=== PATIENT | female | born 1945 | race Two or more races ===

== ENCOUNTER 2024-09-19 14:24 | Inpatient (IN) | payer MEDICAID ==
[~2024-09-19] VITALS: Ht 149.9 cm; Wt 52.7 kg
[2024-09-19 15:48] LABS: Basophils # (auto) 0 10 ^3/uL (0-0.2); Basophils % (auto) 0.4 % (0.0-2.0); Eosinophils # (auto) 0.1 10 ^3/uL (0-0.8); Eosinophils % (auto) 0.9 % (0.0-7.0); Hematocrit 26.7 % (36.0-46.0); Hemoglobin 8.5 g/dL (12.2-16.2); Lymphocytes # (auto) 3.5 10 ^3/uL (0.4-5.4); Lymphocytes % (auto) 44.5 % (10.0-50.0); Mean Corpuscular Hemoglobin 25.1 pg (28.0-32.0); Mean Corpuscular Volume 78.3 fL (80.0-100.0); Monocytes # (auto) 0.5 10 ^3/uL (0-1.3); Monocytes % (auto) 6.7 % (0.0-12.0); Neutrophils # (auto) 3.7 10 ^3/uL (1.6-8.6); Neutrophils % (auto) 47.5 % (37.0-80.0); Platelet Count (auto) 326 10^3/uL (140-450); Red Blood Cells 3.41 10^6/uL (4.0-5.20); Red Cell Distribution Width 18.1 % (11.8-14.3); White Blood Cell 7.8 10^3/uL (4.4-10.8)
[2024-09-19 15:54] LABS: Sodium 140 mmol/L (136-145)
[2024-09-19 15:55] LABS: Anion Gap 9 (5-15); Carbon Dioxide 24 mmol/L (20-31)
[2024-09-19 15:56] LABS: Calcium 9.7 mg/dL (8.7-10.4)
[2024-09-19 16:00] LABS: Glucose 81 mg/dL (74-106)
[2024-09-19 16:01] LABS: BUN/Creatinine Ratio 20.5 (10.0-20.0); Blood Urea Nitrogen 18 mg/dL (9-23); Chloride 107 mmol/L (98-107)
--- NOTE | 2024-09-19 16:07 | ED.PDOC ---
History of Present Illness HPI Comments 78 y/o F presents with c/o abnormal labs, today. Patient reports on being sent from her PCP's office, today, after having a near-syncopal episode and being found with a HgB on 7.9, during an in-person appointment. She comments on attending said appointment, due to reporting symptoms of generalized weakness, lightheadedness, dizziness, shortness of breath, and left-arm numbness, yesterday, to her home-health nurse, while visiting. Patient endorses a history of anemia, CKF, CVA, DM, and inguinal cysts. She denies any chest pain, vision or speech changes, headache, cough, congestion, fever, chills, or other associated symptoms or modifiers at this time. Upon arrival to ED triage, patient was found with a pulse rate of 59 and blood pressure fo 127/50. 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 Family History Family History: Reviewed,noncontributory to illness, Family hx of Cancer, Family hx of stroke Social History Smoker: Non-Smoker Alcohol: Denies ETOH Use Drugs: Denies Drug Use Lives In: Home Constitutional: denies: chills, diaphoresis, fatigue, fever, malaise, sweats, weakness, others EENTM: denies: blurred vision, double vision, ear bleeding, ear discharge, ear drainage, ear pain, ear ringing, eye pain, eye redness, hearing loss, mouth pain, mouth swelling, nasal discharge, nose bleeding, nose congestion, nose pain, photophobia, tearing, throat pain, throat swelling, voice changes, others Respiratory: denies: cough, hemoptysis, orthopnea, SOB at rest, shortness of breath, SOB with excertion, stridor, wheezing, others Cardiovascular: denies: chest pain, dizzy spells, diaphoresis, Dyspnea on exertion, edema, irregular heart beat, left arm pain, lightheadedness, palpitations, PND, syncope, others Gastrointestinal: denies: abdomen distended, abdominal pain, blood streaked bowels, constipated, diarrhea, dysphagia, difficulty swallowing, hematemesis, melena, nausea, poor appetite, poor fluid intake, rectal bleeding, rectal pain, vomiting, others Genitourinary: denies: abnormal vagina bleeding, burning, dyspareunia, dysuria, flank pain, frequency, hematuria, incontinence, pain, , vagina discharge, urgency, others Neurological: denies: dizziness, fainting, headache, left sided numbness, left sided weakness, numbness, paresthesia, pre-existing deficit, right sided numbness, right sided weakness, seizure, speech problems, tingling, tremors, weakness, others Musculoskeletal: denies: back pain, gout, joint pain, joint swelling, muscle pain, muscle stiffness, neck pain, others Integumetry: denies: bruises, change in color, change in hair/nails, dryness, laceration, lesions, lumps, rash, wounds, others Allergic/Immunocompromised: denies: Difficulty Healing, Frequent Infections, Hives, Itching, others Hematologic/Lymphatic: denies: anemia, blood clots, easy bleeding, easy bruising, swollen glands, others Endocrine: denies: excessive hunger, excessive sweating, excessive thirst, excessive urination, flushing, intolerance to cold, intolerance to heat, unexplained weight gain, unexplained weight loss, others Psychiatric: denies: anxiety, bipolar disorder, depression, hopeless, panic disorder, schizophrenia, sleepless, suicidal, others All Other Systems: Reviewed and Negative (negative unless otherwise stated above or in HPI) Physical Exam General Appearance: Moderate Distress HEENT: Normal ENT Inspection, Pharynx Normal, TMs Normal Neck: Full Range of Motion, Non-Tender, Normal, Normal Inspection Respiratory: Chest Non-Tender, Lungs Clear, No Accessory Muscle Use, No Respiratory Distress, Normal Breath Sounds Cardiovascular: No Edema, No JVD, No Murmur, No Gallop, Normal Peripheral Pulses, Regular Rate/Rhythm Breast Exam: Deferred Gastrointestinal: No Organomegaly, Non Tender, No Pulsatile Mass, Normal Bowel Sounds, Soft Genitalia: Deferred Pelvic: Deferred Rectal: Deferred Extremities: No calf tenderness, Normal capillary refill, Normal inspection, Normal range of motion, Non-tender, No pedal edema Musculoskeletal : Apperance: Normal Neurologic: Alert, 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 Was a procedure done?: No EKG EKG : Pulse Rate (adult): 59 [place]: Normal Cardiac Rhythm: NSR Block: None Hypertrophy: None ST: Normal Differential Dx Considerations may include: viral syndrome, URI, electrolyte imbalance, anemia, PNA X-Ray, Labs, Meds, VS Vital Signs Date Time Temp Pulse Resp B/P (MAP) Pulse Ox O2 Delivery O2 Flow Rate FiO2 09/19/24 17:30 60 16 100 Room Air 09/19/24 17:30 98.1 60 16 131/49 (76) 100 98.1 09/19/24 16:07 59 09/19/24 15:05 97.9 63 18 127/50 (75) 99 09/19/24 14:54 59 Lab Test 09/19/24 15:28 09/19/24 14:47 Range/Units White Blood Count 7.8 4.4-10.8 10^3/uL Red Blood Count 3.41 L 4.0-5.20 10^6/uL Hemoglobin 8.5 L 12.2-16.2 g/dL Hematocrit 26.7 L 36.0-46.0 % Mean Corpuscular Volume 78.3 L 80.0-100.0 fL Mean Corpuscular Hemoglobin 25.1 L 28.0-32.0 pg Mean Corpuscular Hemoglobin Concent 32.0 32.0-36.0 g/dL Red Cell Distribution Width 18.1 H 11.8-14.3 % Platelet Count 326 140-450 10^3/uL Mean Platelet Volume 8.0 6.9-10.8 fL Neutrophils (%) (Auto) 47.5 37.0-80.0 % Lymphocytes (%) (Auto) 44.5 10.0-50.0 % Monocytes (%) (Auto) 6.7 0.0-12.0 % Eosinophils (%) (Auto) 0.9 0.0-7.0 % Basophils (%) (Auto) 0.4 0.0-2.0 % Neutrophils # (Auto) 3.7 1.6-8.6 10 ^3/uL Lymphocytes # (Auto) 3.5 0.4-5.4 10 ^3/uL Monocytes # (Auto) 0.5 0-1.3 10 ^3/uL Eosinophils # (Auto) 0.1 0-0.8 10 ^3/uL Basophils # (Auto) 0 0-0.2 10 ^3/uL Nucleated Red Blood Cells 0.0 % Prothrombin Time 10.3 9.3-11.8 sec Prothrombin Time INR 0.97 0.9-1.15 Activated Partial Thromboplast Time 25.0 24.5-34.5 SEC Sodium Level 140 136-145 mmol/L Potassium Level 4.0 3.5-5.1 mmol/L Chloride Level 107 98-107 mmol/L Carbon Dioxide Level 24 20-31 mmol/L Anion Gap 9 5-15 Blood Urea Nitrogen 18 9-23 mg/dL Creatinine 0.88 0.550-1.02 mg/dL Glomerular Filtration Rate Calc 68 >90 mL/min BUN/Creatinine Ratio 20.5 H 10.0-20.0 Serum Glucose 81 74-106 mg/dL Calcium Level 9.7 8.7-10.4 mg/dL POC Glucose 79 70-106 mg/dl The CBC shows anemia with a hemoglobin of 8.5 and hematocrit 26.7 The platelets are within normal limits The chemistry panel is within normal limits At this time, the patient will be admitted to the hospitalist The patient was still having symptoms of dizziness Images Reviewed?: Images reviewed and evaluated by me Time of 1ST Reevaluation: 15:30 Reevaluation 1ST: Unchanged Patient Education/Counseling: Diagnosis, Treatment, Prognosis Family Education/Counseling: No Family Present Departure 1 Departure Time of Disposition: 20:25 Impression: Primary Impression: Autonomic dysfunction Disposition: 09 ADMITTED INPATIENT Admit to: Tele Condition: Fair Critical Care Note Critical Care Time?: Yes (45 min-critical care time only) Stability Stability form required: Yes Unstable for transfer: Telemetry monitoring (Telemetry monitoring required), ED Physician Assesment (Clinical assesment) Heart Score Heart Score: Heart Score Response (Comments) Value History Moderate Suspicious 1 EKG Normal 0 Age >65 2 Risk Factors >3 or Hx ASHD 2 Troponin N/A 0 Total 5 I personally scribed for DANIELLE HEADLEY MD ([email or web address]) on 09/19/24 at 16:07. Electronically submitted by Phillip Mack ([email or web address]). DANIELLE HEADLEY MD Sep 19, 2024 16:07
[2024-09-19 16:13] LABS: INR 0.97 (0.9-1.15); Prothrombin Time 10.3 sec (9.3-11.8)
[2024-09-19] MEDS ORDERED: DOCUSATE SOD 100 MG CAP PO PRN (22:30)
[2024-09-19] MEDS ORDERED: DEXTROSE (50%) 50ML SYRG IV PRN (22:30)
--- NOTE | 2024-09-19 23:11 | DVHHP2 ---
History of Present Illness Reason for Visit: Anemia, unspecified History of Present Illness The patient is a 78-year-old female with multiple past medical history including anemia, DM, and hypertension who presented to [facility] ED with complaint dizziness. Patient reports she was seen by her PCP's office today a fter having a near syncopal episode with hemoglobin 7.9 during an inpatient appointment. Patient was sent to our facility ED due to progressive symptoms of generalized weakness, lightheadedness, dizziness, shortness of breaths, and left arm numbness. Patient was seen and evaluated in the ED, laboratory data shows WBC 7.8, hemoglobin 8.5, hematocrit 26.7, platelets 326, sodium 140, potassium 4.0, BUN 18, creatinine 0.88, GFR 68, glucose 81, calcium 9.7. Blood pressure 136/55, pulse 70, temperature 97.7 F, O2 saturation 98% on room air. Please see medication orders section in the computer. On my assessment, patient denies chest pain, no headache, no dizziness at this moment, no diaphoresis, no shortness of breaths, no nausea, no vomiting, no fever, no chills. Patient was admitted for further evaluation and medical management. Past Medical History Anemia, CKF, CVA, DM, HTN, Inguinal cysts Past Surgical History Appendectomy, Hysterectomy, Cataract surgery, back surgery Family History Reviewed, noncontributory to the management of this case. Past Social History The patient lives at home, denies smoking, alcohol or illicit drugs abuse. Review of Systems Constitutional: Yes: Weakness; No: Fever, Chills, Sweats, Malaise, Other Eyes: No: Pain, Vision change, Conjunctivae inflammation, Eyelid inflammation, Other, Redness ENT: No: Ear pain, Ear discharge, Nose pain, Nose discharge, Nose congestion, Mouth pain, Mouth swelling, Throat pain, Throat swelling, Other Respiratory: No: Cough, Dry, Shortness of breath, SOB with excertion, Wheezing, Hemoptysis, Pleuritic Pain, Sputum, Wheezing, Other Cardiovascular: No: Chest Pain, Palpitations, Orthopnea, Paroxysmal Noc. Dyspnea, Edema, Lt Headedness, Other Gastrointestinal: No: Nausea, Vomiting, Abdominal Pain, Diarrhea, Constipation, Melena, Hematochezia, Other Genitourinary: No Dysuria, No Frequency, No Incontinence, No Hematuria, No Ret ention, No Other Musculoskeletal: No: other, neck pain, shoulder pain, arm pain, back pain, hand pain, leg pain, foot pain Skin: No: Rash, Lesions, Jaundice, Bruising, Other Neurological: Other (Dizziness); No: Weakness, Numbness, Incoordination, Change in speech, Confusion, Seizures Allergies: Coded Allergies: Codeine (Verified Allergy, Mild, RASH, 09/19/24) Medications Current Medications Medications Dose Ordered Sig/Anny Route Start Time Stop Time Status Last Admin Dose Admin Diagnostic Test (Pha) 1 strip ACHS 09/20/24 07:00 UNV Insulin Human Regular ACHS SC 09/20/24 07:00 UNV Dextrose 50 ml UD PRN IV 09/19/24 22:30 UNV Sodium Chloride 10 ml Q8HR IV 09/20/24 06:00 UNV Acetaminophen/ Hydrocodone Bitart 1 tab Q4HP PRN PO 09/19/24 22:30 UNV Ondansetron HCl 4 mg Q4HP PRN IV 09/19/24 22:30 UNV Docusate Sodium 100 mg BIDPRN PRN PO 09/19/24 22:30 UNV Acetaminophen 650 mg Q6HP PRN PO 09/19/24 22:30 UNV Exam Vital Signs Vital Signs Date Time Temp Pulse Resp B/P (MAP) Pulse Ox O2 Delivery O2 Flow Rate FiO2 09/19/24 21:48 97.7 70 14 155/54 (87) 95 97.7 09/19/24 21:38 Room Air* 0 21 General Appearance: Alert, Oriented X3, Cooperative, No acute distress HEENT: Atraumatic, PERRLA, EOMI, Mucous membr. moist/pink Respiratory: Clear to auscultation, Normal air movement Cardiovascular: Regular rate, Normal S1, Normal S2, No murmurs Abdominal: Normal bowel sounds, Soft, No tenderness, No hepatospenomegaly, No masses Extremities: No clubbing, No cyanosis, No edema, Normal pulses, No tenderness/swelling Skin: No rashes, No breakdown, No significant lesion Neuro: Normal speech, Normal tone, Sensation intact, Cranial nerves 3-12 NL, Reflexes 2+, Other (Generalized weakness) Psych/Mental Status: Mental status NL, Mood NL Labs/Xrays Labs Test 09/19/24 21:44 09/19/24 15:28 Range/Units POC Glucose 81 70-106 mg/dl White Blood Count 7.8 4.4-10.8 10^3/uL Red Blood Count 3.41 L 4.0-5.20 10^6/uL Hemoglobin 8.5 L 12.2-16.2 g/dL Hematocrit 26.7 L 36.0-46.0 % Mean Corpuscular Volume 78.3 L 80.0-100.0 fL Mean Corpuscular Hemoglobin 25.1 L 28.0-32.0 pg Mean Corpuscular Hemoglobin Concent 32.0 32.0-36.0 g/dL Red Cell Distribution Width 18.1 H 11.8-14.3 % Platelet Count 326 140-450 10^3/uL Mean Platelet Volume 8.0 6.9-10.8 fL Neutrophils (%) (Auto) 47.5 37.0-80.0 % Lymphocytes (%) (Auto) 44.5 10.0-50.0 % Monocytes (%) (Auto) 6.7 0.0-12.0 % Eosinophils (%) (Auto) 0.9 0.0-7.0 % Basophils (%) (Auto) 0.4 0.0-2.0 % Neutrophils # (Auto) 3.7 1.6-8.6 10 ^3/uL Lymphocytes # (Auto) 3.5 0.4-5.4 10 ^3/uL Monocytes # (Auto) 0.5 0-1.3 10 ^3/uL Eosinophils # (Auto) 0.1 0-0.8 10 ^3/uL Basophils # (Auto) 0 0-0.2 10 ^3/uL Nucleated Red Blood Cells 0.0 % Prothrombin Time 10.3 9.3-11.8 sec Prothrombin Time INR 0.97 0.9-1.15 Activated Partial Thromboplast Time 25.0 24.5-34.5 SEC Sodium Level 140 136-145 mmol/L Potassium Level 4.0 3.5-5.1 mmol/L Chloride Level 107 98-107 mmol/L Carbon Dioxide Level 24 20-31 mmol/L Anion Gap 9 5-15 Blood Urea Nitrogen 18 9-23 mg/dL Creatinine 0.88 0.550-1.02 mg/dL Glomerular Filtration Rate Calc 68 >90 mL/min BUN/Creatinine Ratio 20.5 H 10.0-20.0 Serum Glucose 81 74-106 mg/dL Calcium Level 9.7 8.7-10.4 mg/dL Assessment/Plan Assessment/Plan Anemia, unspecified Dizziness and giddiness Generalized weakness Plan 1. Admit to telemetry unit 2. Breathing treatment 3. Pain control management 4. Management of fluids and electrolytes 5. Consultation for hospitalist 6. Diagnostic tests chest x-ray 7. DVT prophylaxis -on SCDs 8. Repeat labs CBC, CMP in a.m. 9. Continue with current medical management 10. Treatment plan discussed with patient and RN. Patient verbalized understanding. Plan discussed with: Patient, Other (RN) My Orders Orders - CYNDI BRICEÑO DNP Procedure Category Date Status Time Consistent DIET 09/20/24 Transmitted Carb(Ccho)Diabetes Breakfast Glucose Blood PHA 09/20/24 Logged (Accu-Chek Comfort 07:00 Insulin R (Human) PHA 09/20/24 Logged (Insulin R) 07:00 Dextrose 50% Syringe PHA 09/19/24 Logged 22:30 Allergies [facility] 09/19/24 In Process 22:18 Code Status CODE 09/19/24 Transmitted 22:18 Sodium Chloride Lock PHA 09/20/24 Logged (Saline Lock Ns) 06:00 Oxygen Per Hour RT 09/19/24 Transmitted 22:18 Hydrocodone-Acet PHA 09/19/24 Logged 5/325mg Tab ([place] 22:30 Ondansetron Hcl PHA 09/19/24 Logged (Zofran) 22:30 Docusate Sodium PHA 09/19/24 Logged Capsule (Colace 22:30 Fall Risk Precautions [facility] 09/19/[address] 22:18 Complete Blood Count LAB 09/20/24 Verified 04:00 Comprehensive LAB 09/20/24 Verified Metabolic Panel 04:00 Condition: Serious HEIDI 09/19/24 In Process 22:18 Acetaminophen Tablet PHA 09/19/24 Logged (Tylenol Tablet) 22:30 Sequential HEIDI 09/19/24 In Process Compression Device Admit ADMIT 09/19/24 Verified 23:10 Nitroglycerin PHA 09/19/24 Verified Sublingual (Ntrostat 23:15 Morphine Sulfate PHA 09/19/24 Verified Injection 23:15 Notify Of Changes HEIDI 09/19/24 Verified From Base 23:10 Dry Cleaner Hand For [facility] 09/19/24 Verified 24 Hours 23:10 Emergency Dysrhythmia [facility] 09/19/24 Verified Protocol 23:10 Rhythm Strips Once [facility] 09/19/24 Verified Every Shift 23:10 Oxygen By Nasal RT 09/19/24 Verified Cannula 23:10 Problem List: (1) Anemia, unspecified (2) Dizziness and giddiness (3) Generalized weakness Date of Service: Sep 19, 2024 Billing Provider: CYNDI BRICEÑO DNP Common Visit Codes: [id number] INP/OBS CARE (HIGH) CYNDI BRICEÑO DNP Sep 19, 2024 23:11
[2024-09-19] MEDS ORDERED: MORPHINE SULFATE INJ 2 MG/ml SYRG IV PRN (23:15)
[2024-09-19] MEDS ORDERED: NITROGLYCERIN 0.4 MG SL TAB SL PRN (23:15)
[2024-09-20] VITALS (9 sets, daily range): BP systolic 95–146; BP diastolic 36–68; PULSE 55–67; RESP 17–20; TEMP 97.8–98.1; O2SAT 93–100
[2024-09-20] MEDS: HYDROcodone-ACET 5/325MG TAB PO PRN (01:14)
[2024-09-20] MEDS: ACCU-CHEK COMFORT CURVE STRIP VI SCH (06:20)
[2024-09-20] MEDS: InsuLIN REG 1unit/0.01ml Soln (100units/ml) SC SCH (06:20)
[2024-09-20] MEDS: SODIUM CHLOR 0.9% PF (SALINE LOCK) 10ML VIAL/SYR IV SCH (06:20)
[2024-09-20 06:25] LABS: Eosinophils # (auto) 0 10 ^3/uL (0-0.8); Eosinophils % (auto) 0.7 % (0.0-7.0); Mean Corpuscular Hemoglobin 24.6 pg (28.0-32.0); Red Blood Cells 3.26 10^6/uL (4.0-5.20); White Blood Cell 6.5 10^3/uL (4.4-10.8)
[2024-09-20 06:27] LABS: Basophils # (auto) 0.1 10 ^3/uL (0-0.2); Basophils % (auto) 0.9 % (0.0-2.0); Hematocrit 25.4 % (36.0-46.0); Lymphocytes # (auto) 3.3 10 ^3/uL (0.4-5.4); Lymphocytes % (auto) 50.6 % (10.0-50.0); Mean Corpuscular Hgb Conc. 31.5 g/dL (32.0-36.0); Mean Corpuscular Volume 78.1 fL (80.0-100.0); Monocytes # (auto) 0.5 10 ^3/uL (0-1.3); Monocytes % (auto) 7.9 % (0.0-12.0); Neutrophils # (auto) 2.6 10 ^3/uL (1.6-8.6); Neutrophils % (auto) 39.9 % (37.0-80.0); Nucleated Red Blood Cells % 0.1 %; Platelet Count (auto) 288 10^3/uL (140-450)
[2024-09-20 07:15] LABS: Anion Gap 8 (5-15); BUN/Creatinine Ratio 18.6 (10.0-20.0); Blood Urea Nitrogen 18 mg/dL (9-23); Calcium 9.5 mg/dL (8.7-10.4); Carbon Dioxide 25 mmol/L (20-31); Glucose 85 mg/dL (74-106); Potassium 4.5 mmol/L (3.5-5.1); Sodium 142 mmol/L (136-145)
[2024-09-20 07:17] LABS: Albumin 3.9 g/dL (3.2-4.8); Bilirubin, Total 0.3 mg/dL (0.2-1.0)
[2024-09-20 07:25] LABS: Alanine Aminotransferase < 9 U/L (7-40); Alkaline Phosphatase 34 U/L (46-116); Aspartate Aminotransferase 8 U/L (13-40); Chloride 109 mmol/L (98-107); Total Protein 5.6 g/dL (5.7-8.2)
--- NOTE | 2024-09-20 09:22 | ECG ---
[facility] Test Date: 2024-09-19 Test Time: 14:54:21 Pat Name: CHAYITO LAMAR Department: ER Room: 0296T A Gender: F Break Up Worker: SHYANN : 1945 Requested By: DANIELLE HEADLEY Order Number: [id number] Reading MD: Jd Eisenberg Measurements Intervals [place] Rate: 59 P: 60 MN: 133 QRS: 55 QRSD: 87 T: 64 QT: 422 QTc: 418 Interpretive Statements Sinus rhythm Low voltage, extremity leads Electronically Signed On 09-21-2024 17:47:48 PST by Jd Eisenberg Please click the below link to view image of tracing.
--- NOTE | 2024-09-20 12:49 | DVHPN2 ---
Reviewed: Care Plan, H&P, Labs, Medications, Previous Orders, Radiology Changes from previous H/P or p: No Changes Eyes: No Pain, No Vision change, No Conjunctivae inflammation, No Eyelid inflammation, No Other, No Redness ENT: No Ear pain, No Ear discharge, No Nose pain, No Nose discharge, No Nose congestion, No Mouth pain, No Mouth swelling, No Throat pain, No Throat swelling, No Other Cardiovascular: No Chest Pain, No Palpitations, No Orthopnea, No Paroxysmal Noc. Dyspnea, No Edema, No Lt Headedness, No Other Respiratory: No Cough, No Dry, No Shortness of breath, No SOB with excertion, No Wheezing, No Hemoptysis, No Pleuritic Pain, No Sputum, No Other Gastrointestinal: No Nausea, No Vomiting, No Abdominal Pain, No Diarrhea, No Constipation, No Melena, No Hematochezia, No Other Genitourinary: No Dysuria, No Frequency, No Incontinence, No Hematuria, No Retention, No Other Musculoskeletal: No other, No neck pain, No shoulder pain, No arm pain, No back pain, No hand pain, No leg pain, No foot pain Skin: No Rash, No Lesions, No Jaundice, No Bruising, No Other Objective Vitals Vital Signs Date Time Temp Pulse Resp B/P (MAP) Pulse Ox O2 Delivery O2 Flow Rate FiO2 09/20/24 09:00 98.0 55 20 112/68 (83) 99 98.0 09/20/24 08:25 Room Air* 0 21 Intake/Output Intake and Output 09/20/24 07:00 Intake Total 200 ml Balance 200 ml Intake Oral 200 ml # Voids 1 Medications Current Medications Medications Dose Ordered Sig/Anny Route Start Time Stop Time Status Last Admin Dose Admin Diagnostic Test (Pha) 1 strip ACHS 09/20/24 07:00 09/20/24 11:36 1 STRIP Insulin Human Regular ACHS SC 09/20/24 07:00 Dextrose 50 ml UD PRN IV 09/19/24 22:30 Sodium Chloride 10 ml Q8HR IV 09/20/24 06:00 09/20/24 06:20 10 ML Acetaminophen/ Hydrocodone Bitart 1 tab Q4HP PRN PO 09/19/24 22:30 09/20/24 09:08 1 TAB Ondansetron HCl 4 mg Q4HP PRN IV 09/19/24 22:30 Docusate Sodium 100 mg BIDPRN PRN PO 09/19/24 22:30 Acetaminophen 650 mg Q6HP PRN PO 09/19/24 22:30 Nitroglycerin 0.4 mg Q5MINP PRN SL 09/19/24 23:15 Morphine Sulfate 2 mg Q30M PRN IV 09/19/24 23:15 Laboratory Results Laboratory Tests 09/20/24 05:45 Chemistry Test 09/19/24 15:28 09/20/24 05:45 Calcium Level 9.7 mg/dL (8.7-10.4) 9.5 mg/dL (8.7-10.4) Albumin 3.9 g/dL (3.2-4.8) Total Protein 5.6 g/dL (5.7-8.2) L Coagulation Test 09/19/24 15: Prothrombin Time 10.3 sec (9.3-11.8) Prothrombin Time INR 0.97 (0.9-1.15) Activated Partial Thromboplast Time 25.0 SEC (24.5-34.5) LFT Test 09/20/24 05:45 Alanine Aminotransferase (ALT) < 9 U/L (7-40) Alkaline Phosphatase 34 U/L (46-116) L Aspartate Amino Transferase (AST) 8 U/L (13-40) L Total Bilirubin 0.3 mg/dL (0.2-1.0) Labs and/or images reviewed: Labs reviewed by me, Image(s) reviewed by me Assessment/Plan Assessment/Plan Dizziness Near syncope: CT head carotid ultrasound echocardiogram Neurology consult for Dr. Alex Moderate anemia hemoglobin 8.5 Generalized weakness: Melonie test COVID test D-dimer History of CVA Diabetes: Insulin sliding scale Hypertension Left arm weakness ruled out stroke Anemia, unspecified Dizziness and giddiness Generalized weakness Time spent 45 minutes Mc at bedside Plan discussed with: Patient My Orders Orders - AARON ZUNIGA MD Procedure Category Date Status Time Rapid Influenza A&B LAB 09/20/24 Transmitted 12:42 Covid19 Antigen Janet LAB 09/20/24 Transmitted D-Dimer LAB 09/20/24 Transmitted 12:[address] 09/20/24 Verified 12:43 Carotid Duplx W Color US 09/20/24 Verified DOP 12:43 Echo 2d Mode Cardiac US 09/20/24 Verified DOP 12:43 Date of Service: Sep 20, 2024 Billing Provider: AARON ZUNIGA MD Common Visit Codes: [id number] INP/OBS CARE(HIGH) AARON ZUNIGA MD Sep 20, 2024 12:49
--- NOTE | 2024-09-20 13:39 | DVH ---
CLINICAL INFORMATION: 78 years old, Female; dizziness. TECHNIQUE: Axial imaging was obtained through the brain without contrast. Coronal and sagittal refor matted images were obtained, reviewed, and stored. Images were reviewed in brain and bone windows. A ll CT scans at this medical facility are performed using dose modulation techniques as appropriate to a performed exam including the following: Automated exposure control was utilized; adjustment of the MA and/or KV according to patient size; and use of iterative reconstruction technique. CTDIvol = 52.08 mGy DLP = 835.06 mGy-cm COMPARISON: None FINDINGS: There is no acute intracranial hemorrhage or extraaxial fluid collection. No mass effect o r midline shift. Scattered areas of hypoattenuation are seen in the periventricular and subcortical w david matter, which are nonspecific but most likely sequelae of small vessel ischemic disease.The vent ricles and sulci are within normal limits in size for age. Basal cisterns are patent. The calvari um is unremarkable. Paranasal sinuses and mastoid air cells are clear. IMPRESSION: No CT evidence of acute intracranial abnormality.
--- NOTE | 2024-09-20 14:28 | DVH ---
Carotid Duplex Date: 09/20/2024 02:03 PM Clinical History: Near-syncope Comparison: None Technique: Duplex Doppler evaluation of the extracranial carotid and vertebral arteries including color Doppler and spectral/pulsed waveform analysis was performed. Findings: RIGHT SIDE: The peak systolic velocities are 78.9 cm/s in the distal CCA and 134.8 cm/s in the proximal ICA.The I CA/CCA ratio is less than 2. The external carotid artery is patent with peak systolic velocity of 71.1 cm/s proximally. There is appropriate antegrade flow in the right vertebral artery, 62.4 cm/s LEFT SIDE: The peak systolic velocities are 87.1 cm/s in the distal CCA and 145.7 cm/s in the proximal ICA.. Th e ICA/CCA ratio is less than 2. The external carotid artery is patent with peak systolic velocity of 54.4 cm/s proximally. There is appropriate antegrade flow in the left vertebral artery. IMPRESSION: 1. No hemodynamically significant stenosis noted in the right carotid system. 2. No hemodynamically significant stenosis noted in the left carotid system. 3. Reference: Radiology 2003; 229:340-346 HS:Y
[2024-09-20 16:45] LABS: COVID19 ANTIGEN SOFIA FIA NEGATIVE (NEGATIVE); Rapid Influenza A Negative (Negative); Rapid Influenza B Negative (Negative)
[2024-09-20] MEDS ORDERED: HYDR-4798 PO (17:42)
[2024-09-20] MEDS ORDERED: PANT40TA2 PO (17:42)
[2024-09-20] MEDS ORDERED: METH-1181 PO (17:42)
[2024-09-20] MEDS ORDERED: LISI2.5T47 PO (17:42)
[2024-09-20] MEDS ORDERED: LORA10TA6 PO (17:42)
[2024-09-20] MEDS ORDERED: GABA100C PO (17:42)
[2024-09-20] MEDS ORDERED: LORA-35 PO (17:42)
[2024-09-20] MEDS ORDERED: ASPI-543 PO (17:42)
[2024-09-20] MEDS ORDERED: METF-370 PO (17:42)
[2024-09-20] MEDS ORDERED: OYST1TAB OR (17:42)
--- NOTE | 2024-09-20 19:54 | DVHSR ---
APPROVED REPORT EXAM: Two-dimensional and M-mode echocardiogram with Doppler and color Doppler. Blood Pressure: 112/68 mmHg INDICATION Syncope RISK FACTORS Height: 4'11", Weight: 114 DIMENSIONS LVDd4.6 (3.8-5.7cm)LA (2D)3.5 (1.9-4.0cm)Aortic Root2.8 (2.0-3.7cm) LVDs2.7 (2.5-4.0cm)LA (MM) (1.9-4.0cm)Aortic Cusp Exc1.5 (1.5-2.0cm) EF (%) 73.0 (55-70%)Rt. Atrium2.9 (1.9-4.0cm)Asc. Aorta cm IVSd0.8 (0.7-1.1cm)RV (D)2.9 (1.8-2.4cm) PWd0.6 (0.7-1.1cm) Mitral Valve MitralMitral Stenosis E wave0.82m/sMV Mean GR.mmHg A wave1.01m/sMV Peak GR.mmHg E/A ratio0.82D MVAcm2 DECEL [id number] 1/2 Timems Aortic Valve Aortic ValveAortic Stenosis V11.31m/Meredith Mean GR.6mmHg V21.64m/Meredith Peak GR.11mmHg LVOT Diameter1.7 (1.8-2.4cm)Doppler AVA1.81cm2 Pulmonic Valve V20.85m/s Tricuspid Valve TR Velocity2.27m/s [id number] Other Information Quality : Technically LimitedRhythm : Technically limited study due to body habitus. Conclusion Sinus rhythm. Mild RV enlargement. Mild left atrial enlargement. EF of 60% with normal RV function. Valves are normal. Dopplers unremarkable. No pericardial effusion masses or vegetations.
[2024-09-21] VITALS (8 sets, daily range): BP systolic 94–147; BP diastolic 45–65; PULSE 55–71; RESP 16–21; TEMP 97.5–98.1; O2SAT 96–99
--- NOTE | 2024-09-21 11:18 | DVHPN2 ---
Reviewed: Care Plan, H&P, Labs, Medications, Previous Orders, Radiology Changes from previous H/P or p: No Changes Eyes: No Pain, No Vision change, No Conjunctivae inflammation, No Eyelid inflammation, No Other, No Redness ENT: No Ear pain, No Ear discharge, No Nose pain, No Nose discharge, No Nose congestion, No Mouth pain, No Mouth swelling, No Throat pain, No Throat swelling, No Other Cardiovascular: No Chest Pain, No Palpitations, No Orthopnea, No Paroxysmal Noc. Dyspnea, No Edema, No Lt Headedness, No Other Respiratory: No Cough, No Dry, No Shortness of breath, No SOB with excertion, No Wheezing, No Hemoptysis, No Pleuritic Pain, No Sputum, No Other Gastrointestinal: No Nausea, No Vomiting, No Abdominal Pain, No Diarrhea, No Constipation, No Melena, No Hematochezia, No Other Genitourinary: No Dysuria, No Frequency, No Incontinence, No Hematuria, No Retention, No Other Musculoskeletal: No other, No neck pain, No shoulder pain, No arm pain, No back pain, No hand pain, No leg pain, No foot pain Skin: No Rash, No Lesions, No Jaundice, No Bruising, No Other Objective Vitals Vital Signs Date Time Temp Pulse Resp B/P (MAP) Pulse Ox O2 Delivery O2 Flow Rate FiO2 09/21/24 09:00 98.0 59 17 105/45 (65) 97 98.0 09/20/24 20:00 Room Air* 0 21 Intake/Output Intake and Output 09/21/24 07:00 Intake Total 1310 ml Balance 1310 ml Intake Oral 1310 ml # Voids 7 # Bowel Movements 1 Medications Current Medications Medications Dose Ordered Sig/Anny Route Start Time Stop Time Status Last Admin Dose Admin Diagnostic Test (Pha) 1 strip ACHS 09/20/24 07:00 09/21/24 06:39 1 STRIP Insulin Human Regular ACHS SC 09/20/24 07:00 09/20/24 21:26 2 UNITS Dextrose 50 ml UD PRN IV 09/19/24 22:30 Sodium Chloride 10 ml Q8HR IV 09/20/24 06:00 09/21/24 06:00 10 ML Acetaminophen/ Hydrocodone Bitart 1 tab Q4HP PRN PO 09/19/24 22:30 09/21/24 09:38 1 TAB Ondansetron HCl 4 mg Q4HP PRN IV 09/19/24 22:30 Docusate Sodium 100 mg BIDPRN PRN PO 09/19/24 22:30 Acetaminophen 650 mg Q6HP PRN PO 09/19/24 22:30 Nitroglycerin 0.4 mg Q5MINP PRN SL 09/19/24 23:15 Morphine Sulfate 2 mg Q30M PRN IV 09/19/24 23:15 Laboratory Results Laboratory Tests 09/20/24 05:45 Coagulation Test 09/20/24 13:58 D-Dimer, Quantitative 0.40 mg/L FEU (0.0-0.49) Labs and/or images reviewed: Labs reviewed by me, Image(s) reviewed by me Assessment/Plan Assessment/Plan Dizziness Near syncope: CT head negative, carotid ultrasound negative, echocardiogram 60 % ejection fraction, Neurology consult for Dr. Alex Moderate anemia hemoglobin 8.5 Generalized weakness: Melonie test negative, flu test negative D-dimer normal History of CVA Diabetes: Insulin sliding scale Hypertension Left arm weakness rule out stroke Anemia, unspecified Dizziness and giddiness Generalized weakness Time spent 45 minutes Mc at bedside Plan discussed with: Patient My Orders Orders - AARON ZUNIGA MD Procedure Category Date Status Time Head Without Contrast CT 09/20/24 Resulted 12:43 Carotid Duplx W Color US 09/20/24 Resulted DOP 12:43 Echo 2d Mode Cardiac US 09/20/24 Resulted DOP 12:43 Date of Service: Sep 21, 2024 Billing Provider: AARON ZUNIGA MD Common Visit Codes: [id number] INP/OBS CARE(HIGH) AARON ZUNIGA MD Sep 21, 2024 11:18
--- NOTE | 2024-09-21 16:34 | DVHINCON2 ---
Date of Consultation Date Date: 09/21/24 History of Present Illness History of Present Illness [facility] # Demographics Consult Type: Acute Stroke Level 2 (4.5-24 hrs) Patient Location: Inpatient First Name: Kay Last Name: GLORIA COTTO Date of : 1945 Age: 78 Gender: Female Facility: [facility] Time of Initial Page (): 09/21/2024 16:22 Time of Return Call (): 09/21/2024 16:22 # HPI History: 78yof who p/w dizziness and syncope, generalized weakness. Had abnormal labs concerning for GIB, Hb 7.8. Code stroke called as pt had seizure like activity. Pt was tremulous but had no loss of consciousness. Is currently confused moreso than at baseline. She says she has had numbness L arm and problems with her L arm on and off since her surgery in 2023. Had L arm numbness prior to arrival as well. Last Known Normal: - I have collected independent history specific to time last normal or last known well. We have collaborated with the provider and at this time, we have the most current timeline with the information that is available. Unclear but seems to be >4.5 hours ago # Scores Time of exam and NIHSS (): 09/21/2024 16:25 Level of Consciousness 1a: [0] = Alert; keenly responsive LOC Questions 1b: [2] = Answers neither correctly LOC Commands 1c: [0] = Performs both tasks correctly Best Gaze 2: [0] = Normal Visual 3: [0] = No visual loss Facial Palsy 4: [0] = Normal symmetrical movements Motor Arm Left 5a: [1] = Drift Motor Arm Right 5b: [0] = No drift Motor Leg Left 6a: [2] = Some effort against gravity Motor Leg Right 6b: [2] = Some effort against gravity Limb Ataxia 7: [0] = Absent Sensory 8: [0] = Normal Best Language 9: [0] = No aphasia Dysarthria 10: [0] = Normal Extinction and Inattention 11: [0] = No abnormality NIHSS Total: 7 # Data Time Head CT personally read by me (): 09/21/2024 16:[address]: - no bleed - per radiologist read # Plan Thrombolytic/Intervention: NOT IV Thrombolysis or IA Intervention candidate Thrombolytic Exclusion (< 3 hour window): - time of onset unclear Thrombolytic Exclusion: - > 4.5 hours concern for GIB Intraarterial Exclusion: - clinical exam not consistent with presence of large vessel occlusion (LVO), can reconsider if LVO found on vascular imaging Imaging: (urgency: STAT): - CT Angiogram Head and CT Angiogram Neck AND call back with results if abnormal Imaging: (urgency: routine): - MRI Brain with AND without contrast - MRI C spine Diagnostic Test: - EEG Other: - If patient has any neurological deterioration please call me back immediately # Logistics Attestation of consult completion: The patient is located at: [facility]. Facility staff participated in the visit. I performed this telemedicine visit from my offsite office utilizing interactive 2 way audio and visual telecommunication technology. Total time spent in telemedicine encounter: I spent 26 minutes reviewing clinical data and/or imaging, obtaining history, examining the patient, communicating with the onsite care team, and in preparation of this report. # Demographics First Name: Kay Last Name: GLORIA COTTO Facility: [facility] Family History Family History Family History: Patient reports no known family medical history. Allergies: Coded Allergies: Codeine (Verified Allergy, Mild, RASH, 09/19/24) Home Meds Reported Medications Oyster Shell (OYSTER SHELL CALCIUM 500) 500 Mg Tab, 500 MG OR, TAB 09/20/24 Lisinopril (Lisinopril) 2.5 Mg Tab, 2.5 MG PO DAILY, TAB 09/20/24 Gabapentin (Neurontin) 100 Mg Cap, 100 MG PO DAILY, CAP 09/20/24 Hydrocodone-Acetaminophen (Hydrocodone Bitartrate/AC 10-325 mg) 1 Tab Tab, 1 TAB PO BID, TAB 09/20/24 Loratadine (Loratadine) 10 Mg Tab, 10 MG PO, TAB 09/20/24 Loratadine (Loradamed) 10 Mg Tab, 10 MG PO DAILY, MG 09/20/24 Aspirin (Aspir-Low) 81 Mg Tab, 81 MG PO DAILY for 30 Days, MG 09/20/24 Pantoprazole Sodium Sesquihydr (Protonix) 40 Mg Tab, 40 MG PO DAILY, #30 TAB 09/20/24 Methocarbamol (Methocarbamol) 500 Mg Tab, 500 MG PO for 30 Days, MG 09/20/24 Metformin Hydrochloride (Metformin Hcl) 500 Mg Tab, 500 MG PO IBID for 30 Days, MG 09/20/24 Current Medications Current Medications Medications (Trade) Dose Ordered Sig/Anny Route PRN Reason Start Time Stop Time Status Last Admin Aspirin (Ecotrin Enteric Coated Tablet) 81 mg DAILY PO 09/22/24 10:00 Atorvastatin Calcium (Lipitor) 40 mg HS PO 09/21/24 22:00 Physical Examination General Examination: Last Vital sign Vital Signs Date Time Temp Pulse Resp B/P (MAP) Pulse Ox O2 Delivery O2 Flow Rate FiO2 09/21/24 13:00 97.6 57 16 94/65 (75) 96 97.6 09/20/24 20:00 Room Air* 0 21 General: General: No apparent distress, appears comfortable. Cooperative. Neurological Examination: Neurological Examination: Mental Status: Cranial Nerves: Motor Examination: Reflexes: Sensory: Coordination: Gait: Labs: Labs: Laboratory Tests Test 09/19/24 14:47 09/19/24 15:28 09/19/24 21:44 09/20/24 05:45 Range/Units POC Glucose 79 81 70-106 mg/dl White Blood Count 7.8 6.5 4.4-10.8 10^3/uL Red Blood Count 3.41 L 3.26 L 4.0-5.20 10^6/uL Hemoglobin 8.5 L 8.0 L 12.2-16.2 g/dL Hematocrit 26.7 L 25.4 L 36.0-46.0 % Mean Corpuscular Volume 78.3 L 78.1 L 80.0-100.0 fL Mean Corpuscular Hemoglobin 25.1 L 24.6 L 28.0-32.0 pg Mean Corpuscular Hemoglobin Concent 32.0 31.5 L 32.0-36.0 g/dL Red Cell Distribution Width 18.1 H 18.0 H 11.8-14.3 % Platelet Count 326 288 140-450 10^3/uL Mean Platelet Volume 8.0 8.1 6.9-10.8 fL Neutrophils (%) (Auto) 47.5 39.9 37.0-80.0 % Lymphocytes (%) (Auto) 44.5 50.6 H 10.0-50.0 % Monocytes (%) (Auto) 6.7 7.9 0.0-12.0 % Eosinophils (%) (Auto) 0.9 0.7 0.0-7.0 % Basophils (%) (Auto) 0.4 0.9 0.0-2.0 % Neutrophils # (Auto) 3.7 2.6 1.6-8.6 10 ^3/uL Lymphocytes # (Auto) 3.5 3.3 0.4-5.4 10 ^3/uL Monocytes # (Auto) 0.5 0.5 0-1.3 10 ^3/uL Eosinophils # (Auto) 0.1 0 0-0.8 10 ^3/uL Basophils # (Auto) 0 0.1 0-0.2 10 ^3/uL Nucleated Red Blood Cells 0.0 0.1 % Prothrombin Time 10.3 9.3-11.8 sec Prothrombin Time INR 0.97 0.9-1.15 Activated Partial Thromboplast Time 25.0 24.5-34.5 SEC Sodium Level 140 142 136-145 mmol/L Potassium Level 4.0 4.5 3.5-5.1 mmol/L Chloride Level 107 109 H 98-107 mmol/L Carbon Dioxide Level 24 25 20-31 mmol/L Anion Gap 9 8 5-15 Blood Urea Nitrogen 18 18 9-23 mg/dL Creatinine 0.88 0.97 0.550-1.02 mg/dL Glomerular Filtration Rate Calc 68 60 >90 mL/min BUN/Creatinine Ratio 20.5 H 18.6 10.0-20.0 Serum Glucose 81 85 74-106 mg/dL Calcium Level 9.7 9.5 8.7-10.4 mg/dL Total Bilirubin 0.3 0.2-1.0 mg/dL Aspartate Amino Transferase (AST) 8 L 13-40 U/L Alanine Aminotransferase (ALT) < 9 7-40 U/L Alkaline Phosphatase 34 L 46-116 U/L Total Protein 5.6 L 5.7-8.2 g/dL Albumin 3.9 3.2-4.8 g/dL Test 09/20/24 06:18 09/20/24 11:35 09/20/24 13:58 09/20/24 15:36 Range/Units POC Glucose 84 86 70-106 mg/dl D-Dimer, Quantitative 0.40 0.0-0.49 mg/L FEU Influenza Type A Antigen Negative Negative Influenza Type B Antigen Negative Negative SARS-CoV-2 Antigen (Rapid) Negative NEGATIVE Test 09/20/24 17:22 09/20/24 21:22 09/21/24 06:31 09/21/24 12:20 Range/Units POC Glucose 92 139 H 84 114 H 70-106 mg/dl Assessment/Plan Assessment/Plan Assessment and Plan:Kay Cotto is a 78 year old female who presents with Plan discussed with: Patient NAVJOT HO MD Sep 21, 2024 16:34
[2024-09-21] MEDS ORDERED: IOHEXOL 350 MG/ML 100ML IJ ONE (16:41)
--- NOTE | 2024-09-21 17:32 | DVH ---
CLINICAL INFORMATION: 78 years old, Female; left side numbness. TECHNIQUE: Axial CTA images of the head and neck were obtained after the uneventful administration o f 80 mL Omnipaque 350 IV contrast. Coronal and sagittal reformatted images and MIP images were obtain ed, reviewed, and stored. Measurements of carotid stenosis are made per NASCET criteria. All CT scans at this medical facility are performed using dose modulation techniques as appropriate to a performe d exam including the following: Automated exposure control was utilized; adjustment of the MA and/or KV according to patient size; and use of iterative reconstruction technique. CTDIvol = 25.88 mGy DLP = 799.16 mGy-cm COMPARISON: Noncontrast enhanced CT dated 09/20/2024 FINDINGS: CTA HEAD: Posterior cerebral arteries, basilar artery, and intracranial segments of the distal verteb ral arteries are normal in caliber and course with no evidence of aneurysm, large vessel occlusion, s ignificant stenosis, or vascular malformation. The anterior and middle cerebral arteries and intracra nial segments of the distal internal carotid arteries are normal in caliber and course with no eviden ce of aneurysm, large vessel occlusion, significant stenosis, or vascular malformation. CTA NECK: Normal configuration of the aortic arch with patent origins of the brachiocephalic artery, left common carotid artery, and left subclavian artery. Subclavian arteries are patent with no signif icant stenosis. There is calcified plaque of the left carotid bifurcation proximal left ICA with up t o 50% stenosis in the left proximal ICA. The bilateral common carotid, internal carotid, and external carotid arteries are otherwise patent with no significant stenosis or evidence of dissection. Verteb ral arteries are patent with no significant stenosis or evidence of dissection. Postsurgical changes of anterior cervical discectomy and fusion in the cervical spine extending from C4 through C7. Frandy ctomies C3 through C6. IMPRESSION: 1. CTA head demonstrates no evidence of large vessel occlusion, aneurysm, or significant stenosis. 2. Up to 50% stenosis in the left proximal ICA due to calcified plaque. CTA neck otherwise demonstrat es no evidence of carotid or vertebral dissection or significant stenosis. 3. Additional findings as detailed above.
[2024-09-21] MEDS: ATORVASTATIN 20 MG TAB PO SCH (22:07)
[2024-09-21 22:20] LABS: Urine Bacteria None Seen /hpf (None Seen)
--- NOTE | 2024-09-21 22:28 | DVHINCON2 ---
Date of service: Sep 21, [address] Morales Reason for Consultation Dizziness, syncope History of Present Illness Ms. Michael Cotto is a 78 years old right-handed female with a history of hypertension, diabetes, stroke, anemia, chronic kidney failure, she came to the hospital on 09/19 24 with a chief company of dizziness. At this time, she was alert and fully oriented, she provided the following history For 2-3 weeks, she was spells of dizziness along with blurry vision that lasts for several hours, this happened no med she was supine in bed, sitting in chair or walking/standing, she has seen her eye doctor, but the diagnosis is not clear In the morning on 09/21/2024, the patient was had intense head, blindness without light perception, eyes popping out, head exposing, weakness in the left arm than leg, when she was seeing [facility], she developed shaking in both lower extremity, with spread to the arms and whole-body without loss of consciousness. She was never had similar problem before In the evening on 09/21/24, she told her nurse that she has been on [place] for back pain for many years, if she is not given this medication in a timely fashion, she is have what happened earlier today (shaking all over the body) Coincidentally after a C-spine surgery for neck pain in 2018, she has had progressive weakness, tingling, numbness in the left arm. She was reports the surgery does not help the neck pain Coincidentally after a lumbar spine surgery for intense low back pain in 2023, she has had left leg weakness. She reports the surgery does not help the pain At home, she takes [place] one tablet b.i.d. for pain control WBC/HB/PLT/MCV, 09/20/24: 6.5/8/288/178.1 CBC, 09/20/2024: Unremarkable CT head, 09/23/2024: No CT evidence of acute intracranial abnormality CTA head, neck, 09/23/2024: 1. CTA head demonstrates no evidence of large vessel occlusion, aneurysm, or significant stenosis. 2. Up to 50% stenosis in the left proximal ICA due to calcified plaque. CTA neck otherwise demonstrates no evidence of carotid or vertebral dissection or significant stenosis. 3. Additional findings as detailed above. Past Medical History Hypertension, diabetes, stroke, anemia, chronic kidney failure Past Surgical History Appendectomy, hysterectomy, Inguinal cysts Family History: Patient reports no known family medical history. Family History Stroke, cancer Social History She was no history of smoking, alcohol or drug abuse Allergies: Coded Allergies: Codeine (Verified Allergy, Mild, RASH, 09/19/24) Home Meds Reported Medications Oyster Shell (OYSTER SHELL CALCIUM 500) 500 Mg Tab, 500 MG OR, TAB 09/20/24 Lisinopril (Lisinopril) 2.5 Mg Tab, 2.5 MG PO DAILY, TAB 09/20/24 Gabapentin (Neurontin) 100 Mg Cap, 100 MG PO DAILY, CAP 09/20/24 Hydrocodone-Acetaminophen (Hydrocodone Bitartrate/AC 10-325 mg) 1 Tab Tab, 1 TAB PO BID, TAB 09/20/24 Loratadine (Loratadine) 10 Mg Tab, 10 MG PO, TAB 09/20/24 Loratadine (Loradamed) 10 Mg Tab, 10 MG PO DAILY, MG 09/20/24 Aspirin (Aspir-Low) 81 Mg Tab, 81 MG PO DAILY for 30 Days, MG 09/20/24 Pantoprazole Sodium Sesquihydr (Protonix) 40 Mg Tab, 40 MG PO DAILY, #30 TAB 09/20/24 Methocarbamol (Methocarbamol) 500 Mg Tab, 500 MG PO for 30 Days, MG 09/20/24 Metformin Hydrochloride (Metformin Hcl) 500 Mg Tab, 500 MG PO IBID for 30 Days, MG 09/20/24 Current Medications Current Medications Medications (Trade) Dose Ordered Sig/Anny Route PRN Reason Start Time Stop Time Status Last Admin Aspirin (Ecotrin Enteric Coated Tablet) 81 mg DAILY PO 09/22/24 10:00 Atorvastatin Calcium (Lipitor) 40 mg HS PO 09/21/24 22:00 Review of Systems As above, the other systems are negative Vital Signs Vital Signs Date Time Temp Pulse Resp B/P (MAP) Pulse Ox O2 Delivery O2 Flow Rate FiO2 09/21/24 21:00 98.0 66 19 109/53 (71) 96 98.0 09/21/24 20:14 Room Air* 0 21 Physical Exam GENERAL EXAM: General: the patient is well developed and nourished. No acute distress. HEENT: Normocephalic, neck is supple, no carotid bruits. No mass. RESPIRATORY: Normal respiratory effort with symmetrical lung expansion. Lungs clear to auscultation. CARDIOVASCULAR: Regular rate and rhythm with no murmurs. S1, S2. ABDOMEN: Soft, nontender, normal bowel sound MUSCULOSKELETAL EXAM: Tenderness to palpation in the cervical and the lumbar spine NEUROLOGICAL: MENTAL STATUS: Awake and alert. Oriented to person, place, time and general circumstances. Able to give personal history SPEECH, LANGUAGE, HIGHER CORTICAL FUNCTION: no aphasia or dysathria. CRANIAL NERVES: #2: Intact visual montez to confrontation. The optic discs were sharp. #3,4,6: Pupils are equal, round and reactive. EOMs full and conjugate. No nystagmus. #5: Facial sensation intact in all three divisions bilaterally. Mandibular strength intact. #7: Facial muscles symmetrical and strength intact. #8: Hearing grossly normal to voice. #9,10: Uvula and soft palate rise in the midline. Swallow and voice are normal. #11: Trapezius and sternomastoid strength intact bilaterally. #12: Tongue midline. No fasciculations or atrophy. SENSATION: Sensation to touch and pinprick is normal. MOTOR: Normal tone in the upper and lower extremity. Normal muscle bulk. No fasciculations. No abnormal movements or posturing. Muscle strength of the major groups in the right extremities is 4-5/5. Muscle strength of the major groups in the left extremities is 4/5, she has left arm drift with a typical features. REFLEXES: Deep tendon reflexes normal and symmetrical. No pathological reflexes. CEREBELLAR/COORDINATION: Finger to nose is normal bilaterally. GAIT/STATION: deferred. Labs/Diagnostic Data Labs Test 09/21/24 16:39 09/20/24 15:36 09/20/24 13:58 09/20/24 05:45 Range/Units POC Glucose 99 70-106 mg/dl Influenza Type A Antigen Negative Negative Influenza Type B Antigen Negative Negative SARS-CoV-2 Antigen (Rapid) Negative NEGATIVE D-Dimer, Quantitative 0.40 0.0-0.49 mg/L FEU White Blood Count 6.5 4.4-10.8 10^3/uL Red Blood Count 3.26 L 4.0-5.20 10^6/uL Hemoglobin 8.0 L 12.2-16.2 g/dL Hematocrit 25.4 L 36.0-46.0 % Mean Corpuscular Volume 78.1 L 80.0-100.0 fL Mean Corpuscular Hemoglobin 24.6 L 28.0-32.0 pg Mean Corpuscular Hemoglobin Concent 31.5 L 32.0-36.0 g/dL Red Cell Distribution Width 18.0 H 11.8-14.3 % Platelet Count 288 140-450 10^3/uL Mean Platelet Volume 8.1 6.9-10.8 fL Neutrophils (%) (Auto) 39.9 37.0-80.0 % Lymphocytes (%) (Auto) 50.6 H 10.0-50.0 % Monocytes (%) (Auto) 7.9 0.0-12.0 % Eosinophils (%) (Auto) 0.7 0.0-7.0 % Basophils (%) (Auto) 0.9 0.0-2.0 % Neutrophils # (Auto) 2.6 1.6-8.6 10 ^3/uL Lymphocytes # (Auto) 3.3 0.4-5.4 10 ^3/uL Monocytes # (Auto) 0.5 0-1.3 10 ^3/uL Eosinophils # (Auto) 0 0-0.8 10 ^3/uL Basophils # (Auto) 0.1 0-0.2 10 ^3/uL Nucleated Red Blood Cells 0.1 % Sodium Level 142 136-145 mmol/L Potassium Level 4.5 3.5-5.1 mmol/L Chloride Level 109 H 98-107 mmol/L Carbon Dioxide Level 25 20-31 mmol/L Anion Gap 8 5-15 Blood Urea Nitrogen 18 9-23 mg/dL Creatinine 0.97 0.550-1.02 mg/dL Glomerular Filtration Rate Calc 60 >90 mL/min BUN/Creatinine Ratio 18.6 10.0-20.0 Serum Glucose 85 74-106 mg/dL Calcium Level 9.5 8.7-10.4 mg/dL Total Bilirubin 0.3 0.2-1.0 mg/dL Aspartate Amino Transferase (AST) 8 L 13-40 U/L Alanine Aminotransferase (ALT) < 9 7-40 U/L Alkaline Phosphatase 34 L 46-116 U/L Total Protein 5.6 L 5.7-8.2 g/dL Albumin 3.9 3.2-4.8 g/dL Test 09/19/24 15:28 Range/Units Prothrombin Time 10.3 9.3-11.8 sec Prothrombin Time INR 0.97 0.9-1.15 Activated Partial Thromboplast Time 25.0 24.5-34.5 SEC Assessment Dizziness, not positional, etiology unclear, ? Bradycardia Chronic weakness in the left arm the leg, ? Secondary to cervical spine and the lumbar spine disease Headache, vision loss, resolved, etiology unclear Single spell of generalized shaking without altered mental status on 09/21/2024, likely psychogenic Plan/Recommendation Monitoring Supportive treatment Telemetry EEG MR brain scan MRI T-spine Current pain management Cardiology evaluation Re: Dizziness More recommendation per clinical course Prognosis: Poor This medical document was created using an electronic medical record system with [employer] computerized dictation system. Although this document has been carefully reviewed, there may still be some phonetic and typographical errors. These areas are purely typographical due to imperfections of the software programs, and do not reflect any compromise in the patient's medical care. Plan discussed with: Patient, Other ROSE MARIE MAIER MD Sep 21, 2024 22:28
[2024-09-21 22:44] LABS: Urine Blood Negative /uL (Negative); Urine Clarity Clear (Clear); Urine Color Light-Yellow (Yellow); Urine Protein, UAD Negative (Negative); Urine Squamous Epithelial Cell FEW /hpf (<5); Urine Urobilinogen Normal (Negative); Urine WBC < 1 /HPF (0-5); Urine pH 7.5 (5.0-9.0)
[2024-09-21 22:46] LABS: Urine Specific Gravity 1.046 (1.001-1.035)
[2024-09-21] MEDS ORDERED: LORazepam 2MG/ML-1ML VIAL IV PRN (23:30)
[2024-09-22] VITALS (8 sets, daily range): BP systolic 104–131; BP diastolic 43–86; PULSE 54–72; RESP 16–19; TEMP 97.1–98.4; O2SAT 96–99
[2024-09-22] MEDS: ASPirin-EC 81 mg tab PO SCH (09:31)
--- NOTE | 2024-09-22 12:25 | DVHPN2 ---
Reviewed: Care Plan, H&P, Labs, Medications, Previous Orders, Radiology Changes from previous H/P or p: No Changes Eyes: No Pain, No Vision change, No Conjunctivae inflammation, No Eyelid inflammation, No Other, No Redness ENT: No Ear pain, No Ear discharge, No Nose pain, No Nose discharge, No Nose congestion, No Mouth pain, No Mouth swelling, No Throat pain, No Throat swelling, No Other Cardiovascular: No Chest Pain, No Palpitations, No Orthopnea, No Paroxysmal Noc. Dyspnea, No Edema, No Lt Headedness, No Other Respiratory: No Cough, No Dry, No Shortness of breath, No SOB with excertion, No Wheezing, No Hemoptysis, No Pleuritic Pain, No Sputum, No Other Gastrointestinal: No Nausea, No Vomiting, No Abdominal Pain, No Diarrhea, No Constipation, No Melena, No Hematochezia, No Other Genitourinary: No Dysuria, No Frequency, No Incontinence, No Hematuria, No Retention, No Other Musculoskeletal: No other, No neck pain, No shoulder pain, No arm pain, No back pain, No hand pain, No leg pain, No foot pain Skin: No Rash, No Lesions, No Jaundice, No Bruising, No Other Objective Vitals Vital Signs Date Time Temp Pulse Resp B/P (MAP) Pulse Ox O2 Delivery O2 Flow Rate FiO2 09/22/24 09:00 97.1 54 17 128/86 (100) 99 97.1 09/21/24 20:14 Room Air* 0 21 Intake/Output Intake and Output 09/22/24 07:00 Intake Total 1520 ml Balance 1520 ml Intake Oral 1520 ml # Voids 9 Medications Current Medications Medications Dose Ordered Sig/Anny Route Start Time Stop Time Status Last Admin Dose Admin Diagnostic Test (Pha) 1 strip ACHS 09/20/24 07:00 09/22/24 05:56 1 STRIP Insulin Human Regular ACHS SC 09/20/24 07:00 09/20/24 21:26 2 UNITS Dextrose 50 ml UD PRN IV 09/19/24 22:30 Sodium Chloride 10 ml Q8HR IV 09/20/24 06:00 09/22/24 05:57 10 ML Acetaminophen/ Hydrocodone Bitart 1 tab Q4HP PRN PO 09/19/24 22:30 09/22/24 09:31 1 TAB Ondansetron HCl 4 mg Q4HP PRN IV 09/19/24 22:30 Docusate Sodium 100 mg BIDPRN PRN PO 09/19/24 22:30 Acetaminophen 650 mg Q6HP PRN PO 09/19/24 22:30 Nitroglycerin 0.4 mg Q5MINP PRN SL 09/19/24 23:15 Morphine Sulfate 2 mg Q30M PRN IV 09/19/24 23:15 Aspirin 81 mg DAILY PO 09/22/24 10:00 09/22/24 09:31 81 MG Atorvastatin Calcium 40 mg HS PO 09/21/24 22:00 09/21/24 22:07 40 MG Lorazepam 1 mg ONCE PRN IV 09/21/24 23:30 Laboratory Results Laboratory Tests 09/20/24 05:45 Urinalysis Test 09/21/24 22:00 Urine Color Light-yellow (Yellow) Urine Clarity Clear (Clear) Urine pH 7.5 (5.0-9.0) Urine Specific [place] 1.046 (1.001-1.035) Urine Protein Negative (Negative) Urine Ketones Negative (Negative) Urine Blood Negative /uL (Negative) Urine Nitrite Negative (Negative) Urine Bilirubin Negative (Negative) Urine Urobilinogen Normal mg/dL (Negative) Urine Leukocyte Esterase Negative /uL (Negative) Urine RBC <1 /hpf (0 - 4) Urine Microscopic WBC < 1 /HPF (0-5) Urine Squamous Epithelial Cells Few /hpf (<5) Urine Bacteria None seen /hpf (None Seen) Urine Glucose Normal mg/dL (Normal) Labs and/or images reviewed: Labs reviewed by me, Image(s) reviewed by me Assessment/Plan Assessment/Plan Dizziness Near syncope: CT head negative, carotid ultrasound negative, echocardiogram 60 % ejection fraction, Neurology consult for Dr. Alex MRI brain pending EEG pending CTA head and neck shows no acute changes Moderate anemia hemoglobin 8.5 Generalized weakness: Melonie test negative, flu test negative D-dimer normal History of CVA Diabetes: Insulin sliding scale Hypertension Left arm weakness rule out stroke possibly secondary to C-spine disease Anemia, unspecified Dizziness and giddiness History of Depression in the past: Start Cymbalta 60 mg p.o. HS Muscle spasm Robaxin Generalized weakness Time spent 45 minutes Mc at bedside Plan discussed with: Patient My Orders Orders - AARON ZUNIGA MD Procedure Category Date Status Time Aspirin Enteric PHA 09/22/24 In Process Coated Tablet 10:00 Atorvastatin (Lipitor) PHA 09/21/24 In Process 22:00 Date of Service: Sep 22, 2024 Billing Provider: AARON ZUNIGA MD Common Visit Codes: [id number] INP/OBS CARE(HIGH) AARON ZUNIGA MD Sep 22, 2024 12:24
[2024-09-22] MEDS: DULoxetine HCL 30 MG CAP PO ONE (13:58)
[2024-09-22] MEDS: ACETAMINOPHEN 325 MG TAB PO PRN (14:15)
--- NOTE | 2024-09-22 15:17 | DVH ---
EXAM: MRI BRAIN HEAD WO CONTRAST HISTORY: left sided numbness COMPARISON: Noncontrast CT scan of the head from earlier same day. TECHNIQUE: Multiplanar multisequence noncontrast MR images of the brain were performed. FINDINGS: There is global brain atrophy. No intracranial this is, midline shift, or hydrocephalus are identified. There is mild high T2-FLAIR signal abnormality in the periventricular white matter and m inimal spotty signal abnormality in the left frontal white matter. No evidence of acute infarct on th e diffusion-weighted images. T2 gradient echo images are negative for abnormal accumulation of intrac ranial blood products. Cavum septum pellucidum and cavum septum vergae incidentally noted. Flow voids are present in the major intracranial vessels. The corpus callosum and craniocervical junction are u nremarkable. Empty sella is incidentally noted. No abnormal flattening of the posterior sclera. There are postoperative changes of bilateral cataract extraction surgery. There is mild mucosal thickening of the left maxillary and bilateral ethmoid sinuses. The bilateral mastoid air cells are clear. Ther e are postoperative changes of anterior and posterior cervical spine fusion, not fully imaged here. IMPRESSION: 1. Global brain atrophy and chronic ischemic changes without evidence of acute infarct or other acute intracranial process. 2. Empty sella, without other evidence of intracranial hypertension. 3. Mild paranasal sinus disease. 4. Postoperative changes of the cervical spine, not fully imaged here.
--- NOTE | 2024-09-22 15:31 | DVH ---
PROCEDURE: MRI CERVICAL WO CONTRAST INDICATION: left sided numbness EXAM DATE: 09/22/2024 02:45 PM COMPARISON: CTA of the neck dated 09/21/2024. TECHNIQUE: MRI cervical spine without intravenous contrast. FINDINGS: No fracture or listhesis of the cervical spine. There are postoperative changes anterior spinal fusio n and discectomy C4-C7; posterior spinal fusion with pedicle screws and rods C3-C6; laminectomy C3-C6 . Postoperative changes are better characterized on recent CT scan. Empty sella is incidentally noted . No cerebellar tonsillar ectopia. No abnormal signal in the cervical spinal cord. No significant spinal canal stenosis is identified at any level in the cervical spine. There is signi ficant neural foraminal stenosis bilaterally at C6-C7, better characterized on recent CT scan. The ne ural foramina in the cervical spine are difficult to evaluate secondary to metallic susceptibility ar tifact and patient motion artifact. Discopathy and facet arthropathy cause [id number] spinal ca nal stenosis at T1-T2, with mild mass effect on the anterior margin of the thoracic spinal cord. IMPRESSION: 1. No fracture of the cervical spine. 2. Postoperative changes of anterior and posterior cervical spinal fusion and laminectomy as detailed above. 3. Significant neural foraminal stenosis bilaterally at C6-C7, which may cause upper extremity radicu lar symptoms in the bilateral C7 nerve root distributions. No high-grade spinal canal stenosis at any level in the cervical spine. 4. T1-T2 [id number] spinal canal stenosis and mild mass effect on the anterior margin of the th oracic spinal cord at that level. Consider follow-up noncontrast MRI of the thoracic spine on an out patient basis for better characterization. 5. Empty sella.
[2024-09-22] MEDS: ONDANSETRON HCL 4 MG/2 ML VIAL IV PRN (17:12)
[2024-09-22] MEDS: METHOCARBAMOL 500 MG TAB PO SCH (17:13)
[2024-09-23] VITALS (7 sets, daily range): BP systolic 112–137; BP diastolic 34–79; PULSE 63–87; RESP 16–18; TEMP 98–98.4; O2SAT 95–100
[2024-09-23] MEDS: DULoxetine HCL 30 MG CAP PO SCH (08:42)
--- NOTE | 2024-09-23 12:41 | DVHPN2 ---
Reviewed: Care Plan, H&P, Labs, Medications, Previous Orders, Radiology Changes from previous H/P or p: No Changes Eyes: No Pain, No Vision change, No Conjunctivae inflammation, No Eyelid inflammation, No Other, No Redness ENT: No Ear pain, No Ear discharge, No Nose pain, No Nose discharge, No Nose congestion, No Mouth pain, No Mouth swelling, No Throat pain, No Throat swelling, No Other Cardiovascular: No Chest Pain, No Palpitations, No Orthopnea, No Paroxysmal Noc. Dyspnea, No Edema, No Lt Headedness, No Other Respiratory: No Cough, No Dry, No Shortness of breath, No SOB with excertion, No Wheezing, No Hemoptysis, No Pleuritic Pain, No Sputum, No Other Gastrointestinal: No Nausea, No Vomiting, No Abdominal Pain, No Diarrhea, No Constipation, No Melena, No Hematochezia, No Other Genitourinary: No Dysuria, No Frequency, No Incontinence, No Hematuria, No Retention, No Other Musculoskeletal: No other, No neck pain, No shoulder pain, No arm pain, No back pain, No hand pain, No leg pain, No foot pain Skin: No Rash, No Lesions, No Jaundice, No Bruising, No Other Objective Vitals Vital Signs Date Time Temp Pulse Resp B/P (MAP) Pulse Ox O2 Delivery O2 Flow Rate FiO2 09/23/24 09:00 98.2 69 18 112/50 (70) 95 98.2 09/22/24 20:00 Room Air* 0 21 Intake/Output Intake and Output 09/23/24 07:00 Intake Total 2009 ml Balance 2009 ml Intake Oral 2009 ml # Voids 6 # Bowel Movements 1 Medications Current Medications Medications Dose Ordered Sig/Anny Route Start Time Stop Time Status Last Admin Dose Admin Diagnostic Test (Pha) 1 strip ACHS 09/20/24 07:00 09/23/24 11:30 1 STRIP Insulin Human Regular ACHS SC 09/20/24 07:00 09/20/24 21:26 2 UNITS Dextrose 50 ml UD PRN IV 09/19/24 22:30 Sodium Chloride 10 ml Q8HR IV 09/20/24 06:00 09/23/24 06:09 10 ML Acetaminophen/ Hydrocodone Bitart 1 tab Q4HP PRN PO 09/19/24 22:30 09/23/24 12:20 1 TAB Ondansetron HCl 4 mg Q4HP PRN IV 09/19/24 22:30 09/22/24 17:12 4 MG Docusate Sodium 100 mg BIDPRN PRN PO 09/19/24 22:30 Acetaminophen 650 mg Q6HP PRN PO 09/19/24 22:30 09/22/24 14:15 650 MG Nitroglycerin 0.4 mg Q5MINP PRN SL 09/19/24 23:15 Morphine Sulfate 2 mg Q30M PRN IV 09/19/24 23:15 Aspirin 81 mg DAILY PO 09/22/24 10:00 09/23/24 08:42 81 MG Atorvastatin Calcium 40 mg HS PO 09/21/24 22:00 09/22/24 22:20 40 MG Lorazepam 1 mg ONCE PRN IV 09/21/24 23:30 Methocarbamol 500 mg QID PO 09/22/24 18:00 09/23/24 12:19 500 MG Duloxetine HCl 60 mg DAILY PO 09/23/24 10:00 09/23/24 08:42 60 MG Laboratory Results Laboratory Tests 09/20/24 05:45 Urinalysis Test 09/21/24 22:00 Urine Color Light-yellow (Yellow) Urine Clarity Clear (Clear) Urine pH 7.5 (5.0-9.0) Urine Specific [place] 1.046 (1.001-1.035) Urine Protein Negative (Negative) Urine Ketones Negative (Negative) Urine Blood Negative /uL (Negative) Urine Nitrite Negative (Negative) Urine Bilirubin Negative (Negative) Urine Urobilinogen Normal mg/dL (Negative) Urine Leukocyte Esterase Negative /uL (Negative) Urine RBC <1 /hpf (0 - 4) Urine Microscopic WBC < 1 /HPF (0-5) Urine Squamous Epithelial Cells Few /hpf (<5) Urine Bacteria None seen /hpf (None Seen) Urine Glucose Normal mg/dL (Normal) Labs and/or images reviewed: Labs reviewed by me, Image(s) reviewed by me Assessment/Plan Assessment/Plan Dizziness Near syncope: CT head negative, carotid ultrasound negative, echocardiogram 60 % ejection fraction, Neurology consult for Dr. Alex MRI brain negative EEG pending CTA head and neck shows no acute changes, C-spine CT shows significant spinal canal stenosis at C 6-7 with significant radiculopathy History of C-spine surgery by spine surgeon DAYANARA Mark[facility] Moderate anemia hemoglobin 8.5 Generalized weakness: [place] test negative, flu test negative D-dimer normal History of CVA Diabetes: Insulin sliding scale Hypertension Left arm weakness rule out stroke possibly secondary to C-spine disease Anemia, unspecified Dizziness and giddiness History of Depression in the past: Start Cymbalta 60 mg p.o. HS Muscle spasm Robaxin Generalized weakness Time spent 45 minutes Mc at bedside Plan discussed with: Patient Date of Service: Sep 23, 2024 Billing Provider: AARON ZUNIGA MD Common Visit Codes: [id number] INP/OBS CARE(HIGH) AARON ZUNIGA MD Sep 23, 2024 12:41
[2024-09-23] MEDS ORDERED: HYDR-4902 PO (12:42)
--- NOTE | 2024-09-23 12:47 | DVHDS2 ---
Discharge Summary Date of Admission Sep 19, 2024 at 23:10 Date of Discharge: Sep 23, 2024 Admitting Diagnosis Near syncope and neck pain Wounds: None Labs/Diagnostic Data: Laboratory Results Test 09/23/24 11:39 09/21/24 22:00 09/20/24 15:36 09/20/24 13:58 POC Glucose 108 mg/dl (70-106) Urine Color Light-yellow (Yellow) Urine Clarity Clear (Clear) Urine pH 7.5 (5.0-9.0) Urine Specific [place] 1.046 (1.001-1.035) Urine Protein Negative (Negative) Urine Ketones Negative (Negative) Urine Blood Negative /uL (Negative) Urine Nitrite Negative (Negative) Urine Bilirubin Negative (Negative) Urine Urobilinogen Normal mg/dL (Negative) Urine Leukocyte Esterase Negative /uL (Negative) Urine RBC <1 /hpf (0 - 4) Urine Microscopic WBC < 1 /HPF (0-5) Urine Squamous Epithelial Cells Few /hpf (<5) Urine Bacteria None seen /hpf (None Seen) Urine Glucose Normal mg/dL (Normal) Influenza Type A Antigen Negative (Negative) Influenza Type B Antigen Negative (Negative) SARS-CoV-2 Antigen (Rapid) Negative (NEGATIVE) D-Dimer, Quantitative 0.40 mg/L FEU (0.0-0.49) Test 09/20/24 05:45 09/19/24 15:28 White Blood Count 6.5 10^3/uL (4.4-10.8) Red Blood Count 3.26 10^6/uL (4.0-5.20) Hemoglobin 8.0 g/dL (12.2-16.2) Hematocrit 25.4 % (36.0-46.0) Mean Corpuscular Volume 78.1 fL (80.0-100.0) Mean Corpuscular Hemoglobin 24.6 pg (28.0-32.0) Mean Corpuscular Hemoglobin Concent 31.5 g/dL (32.0-36.0) Red Cell Distribution Width 18.0 % (11.8-14.3) Platelet Count 288 10^3/uL (140-450) Mean Platelet Volume 8.1 fL (6.9-10.8) Neutrophils (%) (Auto) 39.9 % (37.0-80.0) Lymphocytes (%) (Auto) 50.6 % (10.0-50.0) Monocytes (%) (Auto) 7.9 % (0.0-12.0) Eosinophils (%) (Auto) 0.7 % (0.0-7.0) Basophils (%) (Auto) 0.9 % (0.0-2.0) Neutrophils # (Auto) 2.6 10 ^3/uL (1.6-8.6) Lymphocytes # (Auto) 3.3 10 ^3/uL (0.4-5.4) Monocytes # (Auto) 0.5 10 ^3/uL (0-1.3) Eosinophils # (Auto) 0 10 ^3/uL (0-0.8) Basophils # (Auto) 0.1 10 ^3/uL (0-0.2) Nucleated Red Blood Cells 0.1 % Sodium Level 142 mmol/L (136-145) Potassium Level 4.5 mmol/L (3.5-5.1) Chloride Level 109 mmol/L (98-107) Carbon Dioxide Level 25 mmol/L (20-31) Anion Gap 8 (5-15) Blood Urea Nitrogen 18 mg/dL (9-23) Creatinine 0.97 mg/dL (0.550-1.02) Glomerular Filtration Rate Calc 60 mL/min (>90) BUN/Creatinine Ratio 18.6 (10.0-20.0) Serum Glucose 85 mg/dL (74-106) Calcium Level 9.5 mg/dL (8.7-10.4) Total Bilirubin 0.3 mg/dL (0.2-1.0) Aspartate Amino Transferase (AST) 8 U/L (13-40) Alanine Aminotransferase (ALT) < 9 U/L (7-40) Alkaline Phosphatase 34 U/L (46-116) Total Protein 5.6 g/dL (5.7-8.2) Albumin 3.9 g/dL (3.2-4.8) Prothrombin Time 10.3 sec (9.3-11.8) Prothrombin Time INR 0.97 (0.9-1.15) Activated Partial Thromboplast Time 25.0 SEC (24.5-34.5) Other Laboratory Tests 09/20/24 05:45 Brief Hx & Hospital Course: 71-year-old female with a history of CVA diabetes hypertension anemia chronic dizziness history of depression on Cymbalta chronic muscle spasms with a history of C-spine surgery in the past came in complaining of neck pain and radiation to the left arm. Patient also had a near syncopal episode. CT head negative carotid ultrasound negative echocardiogram 60 percent ejection fraction neurology consult by Dr. Alex MRI brain is negative EEG is pending CTA head and neck is negative C-spine CT shows significant spinal canal stenosis at C6-C7 with evidence of previous surgery. Patient tells me she had C-spine surgery by spine surgeon Dr. Oliveira at [place]. Patient was started on her home medications and treated with a Spurger for the pain. Melonie test negative flu test negative D-dimer is normal patient being discharged home on Spurger for the chronic neck pain and she will follow up with the spine surgeon at [place]. Consults/Reason for consult Neurology Dr. Alex Operations or Procedures CT head MRI brain C-spine CT CT head and neck Condition at Discharge: Fair Final Diagnosis/Problems List Dizziness Near syncope: CT head negative, carotid ultrasound negative, echocardiogram 60 % ejection fraction, Neurology consult for Dr. Alex MRI brain negative EEG pending CTA head and neck shows no acute changes, C-spine CT shows significant spinal canal stenosis at C 6-7 with significant radiculopathy History of C-spine surgery by spine surgeon Dr. Oliveira, [facility] Moderate anemia hemoglobin 8.5 Generalized weakness: Melonie test negative, flu test negative D-dimer normal History of CVA Diabetes: Insulin sliding scale Hypertension Left arm weakness rule out stroke possibly secondary to C-spine disease Anemia, unspecified Dizziness and giddiness History of Depression in the past: Start Cymbalta 60 mg p.o. HS Muscle spasm Robaxin Generalized weakness Discharge Disposition: Home Discharge Instruct/Medications Diet: Cardiac 2g Na,low cholest Activity: Light activity Follow Up/Referral: Resume all previous home medications Follow up with your primary Dr Follow up with your spine surgeon Dr. Oliveira at [facility] Medications: Spurger Transmitted to A pharmacy 35 (Time taken for discharge summary 35 minutes) Discharge Statement: "Patient was advised to return to the ER or call 911 if any headaches, dizziness, shortness of breath, chest pain, abdominal pain, bleeding, fevers, or worsening of medical condition. Patient was counseled about treatment plan, medications, possible side effects, patientverbalized understanding. All questions were answered to the best of my ability. This discharge took greater then 30 minutes in planning, reviewing documentation, counseling the patient, and discussing with other team members." ASSESSMENT ASSESSMENT Hospital Course Uneventful Assessment Dizziness Near syncope: CT head negative, carotid ultrasound negative, echocardiogram 60 % ejection fraction, Neurology consult for Dr. Alex MRI brain negative EEG pending CTA head and neck shows no acute changes, C-spine CT shows significant spinal canal stenosis at C 6-7 with significant radiculopathy History of C-spine surgery by spine surgeon Dr. Oliveira, [facility] Moderate anemia hemoglobin 8.5 Generalized weakness: Melonie test negative, flu test negative D-dimer normal History of CVA Diabetes: Insulin sliding scale Hypertension Left arm weakness rule out stroke possibly secondary to C-spine disease Anemia, unspecified Dizziness and giddiness History of Depression in the past: Start Cymbalta 60 mg p.o. HS Muscle spasm Robaxin Generalized weakness Date of Service: Sep 23, 2024 Billing Provider: AARON ZUNIGA MD Common Visit Codes: [id number]/[id number] DISCH DAY >30min AARON ZUNIGA MD Sep 23, 2024 12:47
--- NOTE | 2024-09-25 00:02 | DVHEEG2 ---
Neurology EEG Procedural Note Procedural Note EXAM DATE: 09/22/2024 REFERRING DOCTOR: Dr. Maier TECHNIQUE: Eighteen channels of EEG, 2 channels of EOG, and 1 channel of EKG were recorded using the International 10/20 system. CLINICAL DATA medications: The patient was referred for an EEG evaluation for the evidence of seizure disorder. MEDICATIONS: See chart BACKGROUND ACTIVITY: While the patient was awake, the background activity consisted of well regulated 9-10 Hz rhythmic waveforms, symmetrically distributed over both posterior quadrants and was reactive to eye opening. ACTIVATION: Hyperventilation: Not done Photic Stimulation: Not done Sleep: Not seen IMPRESSION: This is a normal EEG. No focal, lateralized, or epileptiform features are noted. If clinically indicated to rule out a seizure disorder, recommend repeat EEG with sleep deprivation. The EKG channel showed a regular heart rate of 60/min [place] [address] ROSE MARIE MAIER MD Sep 25, 2024 00:02
--- NOTE | 2024-09-25 08:37 | ECG ---
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
== END 2024-09-23 17:55 | disposition home health service (06) | DRG 48 ==
LOC: ER 14:34 → TELE-WESTW 23:10 → OVERFLOW 23:10 → TELE-WESTW 23:52
PROVIDERS: ADMIT Family Medicine; ATTEND Family Medicine
DX: G90.89 Other disorders of autonomic nervous system (principal); E11.22 Type 2 diabetes mellitus with diabetic chronic kidney disease; D64.9 Anemia, unspecified; G89.29 Other chronic pain; F32.A Depression, unspecified; Z20.822 Contact with and (suspected) exposure to COVID-19; N18.9 Chronic kidney disease, unspecified; M62.838 Other muscle spasm; H53.8 Other visual disturbances; I12.9 Hypertensive chronic kidney disease with stage 1 through stage 4 chronic kidney disease, or unspecified chronic kidney disease; Z82.3 Family history of stroke; Z86.73 Personal history of transient ischemic attack (TIA), and cerebral infarction without residual deficits; Z90.710 Acquired absence of both cervix and uterus; Z88.5 Allergy status to narcotic agent; Z79.82 Long term (current) use of aspirin; Z79.899 Other long term (current) drug therapy; Z79.84 Long term (current) use of oral hypoglycemic drugs
CPT/HCPCS: 36415; 70450; 70496; 70498; 70551; 72141; 80048; 80053; 81001; 82962; 85025; 85379; 85610; 85730; 86850; 86900; 86901; 87426; 87804; 93005; 93306; 93886; 95819; 99291; G0378; J1815; J2405